=== PATIENT | male | born 1990 | race Caucasian/White ===

== ENCOUNTER 2021-03-31 17:47 | Outpatient (CLI) | payer BC ==
[2021-03-31 18:18] LABS: Hemoglobin 13.9 g/dL (13.5-17.5); Mean Corpuscular HGB CONC 32.6 g/dL (32.0-36.0); Mean Corpuscular Hemoglobin 30.3 pg (27.0-33.0); Mean Platelet Volume 9.3 fl (7.4-10.4); Platelet Count 348 10x3/uL (150-450); RBC Distribution Width 12.9 % (11.5-14.5); Red Blood Cell (RBC) Count 4.58 10x6/uL (4.32-5.72); White Blood Cell (WBC) Count 10.1 10x3/uL (3.5-10.5)
[2021-03-31 18:28] LABS: PTT 26.3 sec (22.0-33.0)
[2021-04-01 01:36] LABS: SARS-CoV-2 PCR by NAA Not Detected (NotDetected)
== END 2021-03-31 17:48 | disposition home or self-care (01) ==
LOC: LABBT 17:47
PROVIDERS: ATTEND Neurological Surgery
DX: Z01.812 Encounter for preprocedural laboratory examination (principal); Z20.822 Contact with and (suspected) exposure to COVID-19
CPT/HCPCS: 85027; 85610; 85730; U0003; U0005

== ENCOUNTER 2021-04-03 05:42 | Day surgery (SDC) | payer BC ==
[2021-04-01 10:34] VITALS: BMI 29.6
[2021-04-03] MEDS ORDERED: ceFAZolin 2 GM/DEX 5% 100 ML BAG ONE (05:56)
[2021-04-03] MEDS ORDERED: Bupivacaine PF 0.5% 30 ML VIAL ONE (06:11)
[2021-04-03] MEDS ORDERED: Neomycin-Polymyxin 1 ML AMP ONE (06:11)
[2021-04-03] MEDS ORDERED: Thrombin 5000 UNITS/5 ML VIAL ONE (06:11)
[2021-04-03] MEDS ORDERED: EPINEPHrine 1 MG/ML AMP ONE (06:11)
[2021-04-03] MEDS ORDERED: Fentanyl 100 MCG/2 ML VIAL ONE ×4 (06:19→11:55)
[2021-04-03] MEDS ORDERED: Midazolam HCl 2 mg/2 ml Vial ONE ×2 (06:19→06:45)
[2021-04-03] MEDS ORDERED: HYDROmorphone 0.5 MG/0.5 ML SYRINGE ONE (06:19)
[2021-04-03] MEDS ORDERED: Ondansetron PF 4 MG/2 ML Vial ONE (06:57)
[2021-04-03] MEDS ORDERED: Glycopyrrolate 0.2 MG/ML 5 ML SYRINGE ONE (06:57)
[2021-04-03] MEDS ORDERED: Lidocaine 1% PF 5 ML VIAL ONE (06:57)
[2021-04-03] MEDS ORDERED: Dexamethasone 20 MG/5 ML VIAL ONE (06:57)
[2021-04-03] MEDS ORDERED: PROPOFOL 200 MG/20 ML VIAL ONE (06:57)
[2021-04-03] MEDS ORDERED: Rocuronium Bromide 10 MG/ML (10ML VIAL) ONE (06:57)
[2021-04-03] MEDS ORDERED: Phenylephrine 10 MG/ML VIAL ONE (06:57)
[2021-04-03] MEDS ORDERED: SUGAMMADEX SODIUM 200 MG/2 ML VIAL ONE (10:18)
[2021-04-03] MEDS ORDERED: Tamsulosin HCl 0.4 MG CAP ONE (11:28)
[2021-04-03] MEDS ORDERED: HYDROcodone/Acetaminophen 5/325 mg Tablet ONE (12:43)
== END 2021-04-03 13:35 | disposition home or self-care (01) ==
LOC: SDC 05:42
PROVIDERS: ATTEND Neurological Surgery
PROC: 00NY0ZZ Release Lumbar Spinal Cord, Open Approach (ICD-10-PCS; principal; 2021-04-03)
DX: M48.061 Spinal stenosis, lumbar region without neurogenic claudication (principal); M51.16 Intervertebral disc disorders with radiculopathy, lumbar region; N20.0 Calculus of kidney; Z79.899 Other long term (current) drug therapy
CPT/HCPCS: 76000; J0171; J1100; J1170; J2250; J2370; J2405; J2704; J3010; J3370; S0020

== ENCOUNTER 2021-04-22 19:01 | Emergency (ER) | payer BC | END 2021-04-22 21:17 | disposition left against medical advice (07) | LOC: ERS 19:01 | DX: Z53.21 Procedure and treatment not carried out due to patient leaving prior to being seen by health care provider (principal) ==